=== PATIENT | female | born 1985 | race Caucasian/White ===

== ENCOUNTER 2018-02-13 06:23 | Day surgery (SDC) | payer OTHER ==
[2018-02-12 14:43] LABS: CHLORIDE,CL 104 mmol/L (98-107); SODIUM,NA 139 mmol/L (136-145)
[~2018-02-13 06:23] MED LIST: Lactated Ringers 1,000 ML IV SCH; Sodium Chloride 0.9% 10 ML Syringe FLUSH PRN; Sodium Chloride 0.9% 2.5 ML Syringe FLUSH PRN
--- NOTE | 2018-02-13 06:45 | PCM.PREANE ---
Preanesthetic Assessment - Anesthesia/Transfusion/Family Hx Anesthesia History: Prior Anesthesia Without Reaction Type of Anesthesia Reaction: Other (see below) (32 hours problem urinating after last surgery) Family History of Anesthesia Reaction: No Transfusion History: No Prior Transfusion(s) Intubation History: Unknown - Review of Systems General: No Symptoms Pulmonary: No Symptoms Cardiovascular: No Symptoms Gastrointestinal: No Symptoms Neurological: No Symptoms Other: Reports: None - Physical Assessment Height: 1.65 m Weight: 74.389 kg ASA Class: 2 Mental Status: Alert & Oriented x3 Airway Class: Mallampati = 2 Dentition: Reports: Normal Dentition (lower retainer) Thyro-Mental Finger Breadths: 3 Mouth Opening Finger Breadths: 3 ROM/Head Extension: Full Lungs: Clear to Auscultation, Normal Respiratory Effort Cardiovascular: Regular Rate, Regular Rhythm - Lab Values: Laboratory Last Values WBC 8.16 K/uL (4.0-11.0) 02/12/18 13:58 RBC 4.83 M/uL (4.30-5.90) 02/12/18 13:58 Hgb 14.7 g/dL (12.0-16.0) 02/12/18 13:58 Hct 43.3 % (36.0-46.0) 02/12/18 13:58 MCV 89.6 fL (80.0-98.0) 02/12/18 13:58 MCH 30.4 pg (27.0-32.0) 02/12/18 13:58 MCHC 33.9 g/dL (31.0-37.0) 02/12/18 13:58 RDW Std Deviation 41.3 fl (28.0-62.0) 02/12/18 13:58 RDW Coeff of Kaitlin 13 % (11.0-15.0) 02/12/18 13:58 Plt Count 261 K/uL (150-400) 02/12/18 13:58 MPV 10.80 fL (7.40-12.00) 02/12/18 13:58 Nucleated RBC % 0.0 /100WBC 02/12/18 13:58 Nucleated RBCs # 0 K/uL 02/12/18 13:58 Sodium 139 mmol/L (136-145) 02/12/18 13:58 Potassium 4.4 mmol/L (3.5-5.1) 02/12/18 13:58 Chloride 104 mmol/L (98-107) 02/12/18 13:58 Carbon Dioxide 25.9 mmol/L (21.0-32.0) 02/12/18 13:58 BUN 14 mg/dL (7.0-18.0) 02/12/18 13:58 Creatinine 0.7 mg/dL (0.6-1.0) 02/12/18 13:58 Est Cr Clr Drug Dosing 104.78 mL/min 02/12/18 13:58 Estimated GFR (MDRD) > 60.0 ml/min 02/12/18 13:58 Glucose 89 mg/dL (74-106) 02/12/18 13:58 Calcium 9.0 mg/dL (8.5-10.1) 02/12/18 13:58 HCG, Qual NEGATIVE (NEG) 02/12/18 13:58 Blood Type A POSITIVE 02/12/18 13:58 Antibody Screen NEGATIVE 02/12/18 13:58 - Allergies Allergies/Adverse Reactions: Allergies Allergy/AdvReac Type Severity Reaction Status Date / Time morphine Allergy Anaphylactic Verified 02/11/18 10:27 Shock - Blood Blood Available: No - Anesthesia Plan Pre-Op Medication Ordered: None - Acknowledgements Anesthesia Type Planned: General Anesthesia Pt an Appropriate Candidate for the Planned Anesthesia: Yes Alternatives and Risks of Anesthesia Discussed w Pt/Guardian: Yes Pt/Guardian Understands and Agrees with Anesthesia Plan: Yes PreAnesthesia Questionnaire HEENT History: Reports: None Other HEENT History: wears glasses, has permanent lower dental retainer Cardiovascular History: Reports: None Respiratory History: Reports: None Gastrointestinal History: Reports: Celiac Disease, Hiatal Hernia Genitourinary History: Reports: Renal Calculus TOOL SPECIALIST History: Reports: Polycystic Ovaries, Other (See Below) Other OB/BYN History: laproscopic cyst removal Musculoskeletal History: Reports: Back Pain, Chronic Other Musculoskeletal History: Knee surgery torn meniscus 2013 Neurological History: Reports: Concussion, Migraines Other Neuro History: chronic migranes, hx of motion sickness Psychiatric History: Reports: Anxiety, Depression Endocrine/Metabolic History: Reports: None Hematologic History: Reports: None Immunologic History: Reports: None Oncologic (Cancer) History: Reports: None Dermatologic History: Reports: Eczema - Past Surgical History Head Surgeries/Procedures: Reports: None HEENT Surgical History: Reports: Oral Surgery Cardiovascular Surgical History: Reports: None Respiratory Surgical History: Reports: None GI Surgical History: Reports: None Female Surgical History: Reports: Lithotripsy/ESWL (urinary stent placement and removal), Other (See Below) Other Female Surgeries/Procedures: Laparoscopy x2, last one 12/04 Endocrine Surgical History: Reports: None Neurological Surgical History: Reports: None Musculoskeletal Surgical History: Reports: Arthroscopic Knee Other Musculoskeletal Surgeries/Procedures:: left for torn meniscus Oncologic Surgical History: Reports: None Dermatological Surgical History: Reports: None - SUBSTANCE USE Smoking Status *Q: Never Smoker Tobacco Use Within Last Twelve Months: No Second Hand Smoke Exposure: No Days Per Week of Alcohol Use: 4 Number of Drinks Per Day: 1 Total Drinks Per Week: 4 Recreational Drug Use History: No - HOME MEDS Home Medications: Home Meds Topiramate [Topamax] 200 mg PO DAILY 11/17/16 [History] buPROPion HCl [Wellbutrin Xl] 450 mg PO DAILY 11/17/16 [History] Multivitamin [Daily Multiple Vitamin] 1 tab PO DAILY 11/28/16 [History] ClonazePAM [KlonoPIN] 0.5 mg PO ASDIRECTED PRN 02/11/18 [History] busPIRone HCl [Buspirone HCl] 7.5 mg PO BID 02/11/18 [History] hydrOXYzine HCl [hydrOXYzine] 10 mg PO ASDIRECTED PRN 02/11/18 [History] - CURRENT (IN HOUSE) MEDS Current Meds: Current Medications Lactated Ringer's (Ringers, Lactated) 1,000 mls @ 125 mls/hr IV ASDIRECTED KRISHNA Sodium Chloride (Saline Flush) 10 ml FLUSH ASDIRECTED PRN PRN Reason: Keep Vein Open Sodium Chloride (Saline Flush) 2.5 ml FLUSH ASDIRECTED PRN PRN Reason: Keep Vein Open
[2018-02-13] MEDS ORDERED: Scopolamine 1.5 MG Transdermal Patch TRDERM PRN (06:46)
[2018-02-13] MEDS ORDERED: fentaNYL 250 MCG/5 ML SDV ONE (07:25)
[2018-02-13] MEDS ORDERED: Propofol 200 MG/20 ML SDV ONE (07:25)
[2018-02-13] MEDS ORDERED: Lidocaine 2% 5 ML SDV ONE (07:25)
[2018-02-13] MEDS ORDERED: Midazolam 1 MG/ML 2 ML SDV ONE (07:25)
[2018-02-13] MEDS ORDERED: Rocuronium 10 MG/ML 10 ML Syringe ONE (07:26)
[2018-02-13] MEDS ORDERED: Glycopyrrolate 0.2 MG/ML SDV ONE (07:26)
[2018-02-13] MEDS ORDERED: Neostigmine Methylsulfate 1 MG/ML 5 ML Syringe ONE (07:26)
[2018-02-13] MEDS ORDERED: Ondansetron 4 MG/2 ML SDV ONE (07:26)
[2018-02-13] MEDS ORDERED: Ketorolac 30 MG/ML SDV ONE (07:26)
[2018-02-13] MEDS ORDERED: ePHEDrine 50 MG/ML SDV ONE (08:08)
[2018-02-13] MEDS ORDERED: Octyl 2-Cyanoacrylate 1 Tube ONE (08:25)
[2018-02-13] MEDS ORDERED: Ketorolac 30 MG/ML SDV IVPUSH ONE (08:56)
[2018-02-13] MEDS ORDERED: Ketorolac 30 MG/ML SDV IVPUSH PRN (08:56)
[2018-02-13] MEDS ORDERED: Ondansetron 4 MG/2 ML SDV IVPUSH PRN (08:56)
[2018-02-13] MEDS ORDERED: Morphine 4 MG/ML Syringe IVPUSH PRN (08:56)
[2018-02-13] MEDS ORDERED: Acetaminophen/oxyCODONE 325-5 MG Tab PO PRN ×2 (08:56)
[2018-02-13] MEDS ORDERED: Promethazine 25 MG/ML SDV IM PRN (08:56)
--- NOTE | 2018-02-13 09:01 | PCM.OPNOTE ---
- General Post-Op/Procedure Note Date of Surgery/Procedure: 02/13/18 Operative Procedure(s): Dignostic Laparscopy Pre Op Diagnosis: Ovarian cyst Post-Op Diagnosis: Same Anesthesia Technique: General ET Tube Primary Surgeon: Florin Caldwell Plasterer Maintenance: Faviola Watts EBL in mLs: 50 Complications: None Condition: Good
[2018-02-13] MEDS: fentaNYL 100 MCG/2 ML SDV IVPUSH PRN ×3 (09:25→09:49)
--- NOTE | 2018-02-13 09:57 | PCM.POSTAN ---
POST ANESTHESIA ASSESSMENT - MENTAL STATUS Mental Status: Alert, Oriented - RESPIRATORY Respiratory Status: Respiratory Rate WNL, Airway Patent, O2 Saturation Stable - CARDIOVASCULAR CV Status: Pulse Rate WNL, Blood Pressure Stable - GASTROINTESTINAL GI Status: No Symptoms - PAIN Pain Score: 6 - POST OP HYDRATION Hydration Status: Adequate & Stable - OBSERVATIONS Free Text/Narrative:: no anesthesia problems
--- NOTE | 2018-02-13 11:26 | PCM48HPAN ---
Post Anesthesia Note - EVALUATION WITHIN 48HRS OF ANESTHETIC Vital Signs in Normal Range: Yes Patient Participated in Evaluation: Yes Respiratory Function Stable: Yes Airway Patent: Yes Cardiovascular Function Stable: Yes Hydration Status Stable: Yes Pain Control Satisfactory: Yes Nausea and Vomiting Control Satisfactory: Yes Mental Status Recovered: Yes Resp Rate: 12 - COMMENTS/OBSERVATIONS Free Text/Narrative:: no anesthesia problems
[2018-02-13 11:46] VITALS: BP 126/70
--- NOTE | 2018-02-13 11:48 | OR ---
SURGEON: Florin Caldwell MD DATE OF PROCEDURE: 02/13/2018 PREOPERATIVE DIAGNOSES: 1. Pelvic pain. 2. Right ovarian cyst. POSTOPERATIVE DIAGNOSES: 1. Pelvic pain. 2. Right ovarian cyst. 3. Pelvic adhesion. 4. Endometriosis, stage I by the [employer] staging. OPERATIONS PERFORMED: Multiple puncture diagnostic laparoscopy, lysis of adhesion, right ovarian cystectomy, and peritoneal lavage. CHIEF UNDERWRITER: KAREN Bonilla ANESTHESIA: General endotracheal intubation, Joe Turner. ESTIMATED BLOOD LOSS: 50 mL or less. COMPLICATIONS: None. FINDINGS: Adhesion between the intestine and the right ovary from her previous surgery that was lysed without any problem. Right ovarian cyst about 5 cm in diameter that was marsupialized and drained and opened. Endometriosis of the pelvis, especially the right pelvic sidewall, that was documented by photography. PROCEDURE IN DETAIL: The patient was brought to the OR, properly identified, and after adequate level of anesthesia, a straight catheter was used to empty the bladder, and then a Smart [place] manipulator was placed in the uterus for manipulation. The operation shifted abdominally. A stab wound done beneath the umbilicus. The Veress needle was placed in the peritoneal cavity and that cavity insufflated with 3 L of carbon dioxide. Then, utilizing the Visiport technique, the peritoneal cavity was entered. During the procedure, we needed to insert 3 additional 5 mm trocars in the right, left, and suprapubic area. Once we entered, there was adhesion between the intestine and the tip of the right ovary, and then with pulling the adhesion at the area of tension, with meticulous sharp and blunt dissection, the adhesion was lysed without any damage to the intestine. Once we did that, I proceeded to inspect the rest of the pelvis. The patient had a 5 cm right ovarian cyst, and she had endometriosis on the pelvis that was documented by photography. After lysing of the adhesion, I proceeded to drain and open the right ovarian cyst. Once this was done, then thorough irrigation of the pelvis was done. Inspection of the whole operative site shows no oozing, no bleeding. The procedure was ended, and instrument hardware was retrieved from the abdomen and the vagina. Multiple laparoscopic incisions closed in layers. EARNESTINE / JACOBO /[id number]
== END 2018-02-13 11:50 | disposition home or self-care (01) ==
LOC: MW.SDS 06:23
PROVIDERS: ATTEND Obstetrics & Gynecology
DX: N80.3 Endometriosis of pelvic peritoneum (principal); R10.2 Pelvic and perineal pain; N83.201 Unspecified ovarian cyst, right side; N73.6 Female pelvic peritoneal adhesions (postinfective); F41.9 Anxiety disorder, unspecified; F32.9 Major depressive disorder, single episode, unspecified; Z88.2 Allergy status to sulfonamides; Z79.899 Other long term (current) drug therapy
CPT/HCPCS: 36415; 58662; 80048; 84703; 85027; 86850; 86900; 86901; A9270; J1885; J2250; J2405; J3010; J7120; 00840; J2704

== ENCOUNTER 2021-03-09 11:54 | Emergency (ER) | payer OTHER ==
--- NOTE | 2021-03-09 11:59 | EDM.PDOC ---
ED HPI GENERAL MEDICAL PROBLEM - General Stated Complaint: LOWER RIGHT SIDE PAIN Time Seen by Provider: 03/09/21 11:55 Source of Information: Reports: Patient History Limitations: Reports: No Limitations - History of Present Illness INITIAL COMMENTS - FREE TEXT/NARRATIVE: HISTORY AND PHYSICAL: History of present illness: The patient is a 35-year-old female with a history of right ovarian cyst rupture in November 17, 2016 which required surgery and admission, and 3 previous right ovarian cyst surgeries, presents to the emergency room with complaints of right lower quad pain that started at 11 AM this morning. The patient states she took 1 ibuprofen 200 mg for pain. She states the pain is worse with standing blood pressure. The pain is better with sitting or leaning forward. She does have na usea, but no vomiting. She states her pain is a 4 out of 10. She has had diarrhea intermittently since her November COV episode. She denies any vaginal discharge, dysuria, frequency or other urinary symptoms. Patient denies any fever, chills, headache, change in vision, syncope or near syncope. Denies any chest pain, back pain, shortness of breath or cough. Has not noted any blood in urine or stool. Review of systems: As per history of present illness and below otherwise all systems reviewed and negative. Past medical history: As per history of present illness and as reviewed below otherwise noncontributory. Surgical history: As per history of present illness and as reviewed below otherwise noncontributory. Social history: See social history for further information Family history: As per history of present illness and as reviewed below otherwise noncontributory. Physical exam: General: Well developed and well nourished. Alert and orientated x 3. Nontoxic in appearance and in no acute distress. Vital signs are stable and have been reviewed by me. Nursing notes were reviewed. HEENT: Atraumatic, normocephalic, pupils equal and reactive bilaterally, negative for conjunctival pallor or scleral icterus, mucous membranes moist, neck supple, nontender, trachea midline. No drooling or trismus noted. No meningeal signs. No hot potato voice noted. Lungs: Clear to auscultation bilaterally. No wheezes, rales, or rhonchi. Chest nontender. Normal work of breathing, no accessory muscles used. Heart: S1S2, regular rate and rhythm without overt murmur, gallops, or rubs. No JVD. No peripheral edema Abdomen: Soft, nondistended, RLQ tender. Normoactive bowel sounds. Negative for masses or costovertebral tenderness. Skin: Intact, warm, dry. No lesions or rashes noted. Hematologic: No petechiae or purpra. Mucosa appropriate color and normal nail bed color and refill. Extremities: Atraumatic, moves all extremities per self without difficulty or deficits, negative for cords or calf pain. Neurovascular unremarkable. Neuro: Awake, alert, oriented. Cranial nerves II through XII unremarkable. Cerebellum unremarkable. Motor and sensory unremarkable throughout. Exam non focal. Psychiatric: Mood and affect are appropriate. Normal thought process. Answering questions appropriately. Notes: *This patient was seen and evaluated during the 2019 SARS-CoV-2 novel coronavir us pandemic period. Community viral transmission is ongoing at time of this encounter and the emergency department is operating under pandemic response procedures. After discussion and examination the patient is agreeable to lab work, ultrasound, and medications. 13:44 CBC and CMP within normal limits. hCG and UA negative. Awaiting transvaginal ultrasound results. (13:54) The patient pain level is increasing and she is requesting more pain medication. I will order Dilaudid 1mg IV for her. (12:20) Pelvis US impression: No definitive findings to explain the patient`s right lower quadrant pain. Nabothian cysts. Small amount of free fluid per the radiologist.CT abdomen/pelvis ordered. (14:33) Patient complained of increased nausea. Phenergan 12.[address] results. (15:18) CT results Small bowel feces sign in several loops of small bowel suggesting bowel stasis. No evidence for bowel obstruction. Nonobstructive 2 mm right renal stone. Normal appendix. The patient was educated on the need to use a laxative. She will try an OTC method at home. Her pain is under control, rating 4/10 and no nausea at this time. This could be causing the patient's pain and I will discharge her home. I have talked with the patient about today's findings, in addition to providing specific details for plan of care. Reassessment at the time of disposition demonstrates that the patient is in no acute distress. The patient is stable for discharge, counseling was provided and we discussed in great detail signs and symptoms that would prompt them to return to the Emergency Department. Medication, follow up and supportive care measures were reviewed and discussed. Voices understanding and is agreeable to plan of care. Denies any further questions or concerns at this time. Diagnostics: CBC, CMP, hCG, UA, transvaginal ultrasound Therapeutics: Zofran, Toradol, Dilaudid Impression: Right lower abdominal pain Plan: 1. You were evaluated today on an emergent basis. Your right lower abdominal pain with blood work, a urinalysis, pelvic ultrasound and abdominal CAT scan. Your blood work was normal and you do not have a urinary tract infection. Your pelvic ultrasound read: No definitive findings to explain the patient`s right lower quadrant pain and your CT showed constipation. You can use an [id number] laxative for your constipation. An NSAID such as Motrin 600 mg every 6-8 hours for your pain. Your next dose is due around 6:30 pm. If you are unable to get pain relief return to the ED. Follow up with your primary care provider for your right lower abdominal pain. 2. You can alternate Tylenol and ibuprofen as needed for pain and fever management. 3. We encourage you to follow up with your primary care provider and/or recommended specialist in the next few days for re-evaluation and further care/management. 4. If your symptoms should worsen, new symptoms develop or any of the signs and symptoms we discussed should arise please return to the emergency room or call 911 (if needed). Definitive disposition and diagnosis as appropriate pending reevaluation and review of above. right side Pain Score (Numeric/FACES): 4 - Related Data Allergies Allergy/AdvReac Type Severity Reaction Status Date / Time morphine Allergy Anaphylactic Verified 03/09/21 12:05 Shock Home Meds: Home Meds Topiramate [Topamax] 200 mg PO DAILY 11/17/16 [History] buPROPion HCL [Wellbutrin Xl] 450 mg PO DAILY 11/17/16 [History] Multivitamin [Daily Multiple Vitamin] 1 tab PO DAILY 11/28/16 [History] ClonazePAM [KlonoPIN] 0.5 mg PO ASDIRECTED PRN 02/11/18 [History] busPIRone HCl [Buspirone HCl] 7.5 mg PO BID 02/11/18 [History] hydrOXYzine HCL [hydrOXYzine] 10 mg PO ASDIRECTED PRN 02/11/18 [History] Past Medical History HEENT History: Reports: None Other HEENT History: wears glasses, has permanent lower dental retainer Cardiovascular History: Reports: None Respiratory History: Reports: None Gastrointestinal History: Reports: Celiac Disease, Hiatal Hernia Genitourinary History: Reports: Renal Calculus P[employer]DER History: Reports: Polycystic Ovaries, Other (See Below) Other [employer]DER History: laproscopic cyst removal Musculoskeletal History: Reports: Back Pain, Chronic Other Musculoskeletal History: Knee surgery torn meniscus 2013 Neurological History: Reports: Concussion, Migraines Other Neuro History: chronic migranes, hx of motion sickness Psychiatric History: Reports: Anxiety, Depression Endocrine/Metabolic History: Reports: None Hematologic History: Reports: None Immunologic History: Reports: None Oncologic (Cancer) History: Reports: None Dermatologic History: Reports: Eczema - Past Surgical History Head Surgeries/Procedures: Reports: None HEENT Surgical History: Reports: Oral Surgery Cardiovascular Surgical History: Reports: None Respiratory Surgical History: Reports: None GI Surgical History: Reports: None Female Surgical History: Reports: Lithotripsy/ESWL, Other (See Below) Other Female Surgeries/Procedures: Laparoscopy x2, last one 12/04 Endocrine Surgical History: Reports: None Neurological Surgical History: Reports: None Musculoskeletal Surgical History: Reports: Arthroscopic Knee Other Musculoskeletal Surgeries/Procedures:: left for torn meniscus Oncologic Surgical History: Reports: None Dermatological Surgical History: Reports: None Social & Family History - Family History Family Medical History: No Pertinent Family History HEENT: Reports: None Cardiac: Reports: Hypertension, Other (See Below) Other Cardiac Family History: grandfather bypass. mother surgery for heart mumor Respiratory: Reports: COPD GI: Reports: None : Reports: None OBGYN: Reports: None Musculoskeletal: Reports: None Neurological: Reports: Alzheimers Disease Psychiatric: Reports: Depression Endocrine/Metabolic: Reports: Diabetes, type II Hematologic: Reports: None Immunologic: Reports: None Oncologic: Reports: Breast - Caffeine Use Caffeine Use: Reports: Coffee ED ROS GENERAL - Review of Systems Review Of Systems: Comprehensive ROS is negative, except as noted in HPI. ED EXAM, GENERAL - Physical Exam Exam: See Below (See dictation) Course - Vital Signs Last Recorded V/S: Last Vital Signs Temp 98.7 F 03/09/21 15:52 Pulse 88 03/09/21 15:52 Resp 16 03/09/21 15:52 BP 101/59 L 03/09/21 15:52 Pulse Ox 98 03/09/21 15:52 - Orders/Labs/Meds Labs: Laboratory Tests 03/09/21 03/09/21 03/09/21 Range/Units 12:30 12:30 12:30 WBC 9.66 (4.0-11.0) K/uL RBC 4.60 (4.30-5.90) M/uL Hgb 14.4 (12.0-16.0) g/dL Hct 43.8 (36.0-46.0) % MCV 95.2 (80.0-98.0) fL MCH 31.3 (27.0-32.0) pg MCHC 32.9 (31.0-37.0) g/dL RDW Std Deviation 46.0 (28.0-62.0) fl RDW Coeff of Kaitlin 13 (11.0-15.0) % Plt Count 230 (150-400) K/uL MPV 11.90 (7.40-12.00) fL Neut % (Auto) 62.4 (48.0-80.0) % Lymph % (Auto) 23.5 (16.0-40.0) % Grayson % (Auto) 12.0 (0.0-15.0) % Eos % (Auto) 1.7 (0.0-7.0) % Baso % (Auto) 0.4 (0.0-1.5) % Neut # (Auto) 6.0 H (1.4-5.7) K/uL Lymph # (Auto) 2.3 (0.6-2.4) K/uL Grayson # (Auto) 1.2 H (0.0-0.8) K/uL Eos # (Auto) 0.2 (0.0-0.7) K/uL Baso # (Auto) 0.0 (0.0-0.1) K/uL Nucleated RBC % 0.0 /100WBC Nucleated RBCs # 0 K/uL Sodium 140 (136-145) mmol/L Potassium 3.8 (3.5-5.1) mmol/L Chloride 105 (98-107) mmol/L Carbon Dioxide 23.7 (21.0-32.0) mmol/L BUN 15 (7.0-18.0) mg/dL Creatinine 0.9 (0.6-1.0) mg/dL Est Cr Clr Drug Dosing 79.25 mL/min Estimated GFR (MDRD) > 60.0 ml/min Glucose 105 (74-106) mg/dL Calcium 9.0 (8.5-10.1) mg/dL Total Bilirubin 0.4 (0.2-1.0) mg/dL AST 18 (15-37) IU/L ALT 31 (14-63) IU/L Alkaline Phosphatase 81 (46-116) U/L Total Protein 7.7 (6.4-8.2) g/dL Albumin 4.0 (3.4-5.0) g/dL Globulin 3.7 (2.6-4.0) g/dL Albumin/Globulin Ratio 1.1 (0.9-1.6) HCG, Qual NEGATIVE (NEG) Urine Color Urine Appearance Urine pH (5.0-8.0) Ur Specific [place] (1.001-1.035) Urine Protein (NEGATIVE) mg/dL Urine Glucose (UA) (NEGATIVE) mg/dL Urine Ketones (NEGATIVE) mg/dL Urine Occult Blood (NEGATIVE) Urine Nitrite (NEGATIVE) Urine Bilirubin (NEGATIVE) Urine Urobilinogen (<2.0) EU/dL Ur Leukocyte Esterase (NEGATIVE) 03/09/21 Range/Units 12:35 WBC (4.0-11.0) K/uL RBC (4.30-5.90) M/uL Hgb (12.0-16.0) g/dL Hct (36.0-46.0) % MCV (80.0-98.0) fL MCH (27.0-32.0) pg MCHC (31.0-37.0) g/dL RDW Std Deviation (28.0-62.0) fl RDW Coeff of Kaitlin (11.0-15.0) % Plt Count (150-400) K/uL MPV (7.40-12.00) fL Neut % (Auto) (48.0-80.0) % Lymph % (Auto) (16.0-40.0) % Grayson % (Auto) (0.0-15.0) % Eos % (Auto) (0.0-7.0) % Baso % (Auto) (0.0-1.5) % Neut # (Auto) (1.4-5.7) K/uL Lymph # (Auto) (0.6-2.4) K/uL Grayson # (Auto) (0.0-0.8) K/uL Eos # (Auto) (0.0-0.7) K/uL Baso # (Auto) (0.0-0.1) K/uL Nucleated RBC % /100WBC Nucleated RBCs # K/uL Sodium (136-145) mmol/L Potassium (3.5-5.1) mmol/L Chloride (98-107) mmol/L Carbon Dioxide (21.0-32.0) mmol/L BUN (7.0-18.0) mg/dL Creatinine (0.6-1.0) mg/dL Est Cr Clr Drug Dosing mL/min Estimated GFR (MDRD) ml/min Glucose (74-106) mg/dL Calcium (8.5-10.1) mg/dL Total Bilirubin (0.2-1.0) mg/dL AST (15-37) IU/L ALT (14-63) IU/L Alkaline Phosphatase (46-116) U/L Total Protein (6.4-8.2) g/dL Albumin (3.4-5.0) g/dL Globulin (2.6-4.0) g/dL Albumin/Globulin Ratio (0.9-1.6) HCG, Qual (NEG) Urine Color YELLOW Urine Appearance CLEAR Urine pH 6.0 (5.0-8.0) Ur Specific [place] 1.010 (1.001-1.035) Urine Protein NEGATIVE (NEGATIVE) mg/dL Urine Glucose (UA) NEGATIVE (NEGATIVE) mg/dL Urine Ketones NEGATIVE (NEGATIVE) mg/dL Urine Occult Blood NEGATIVE (NEGATIVE) Urine Nitrite NEGATIVE (NEGATIVE) Urine Bilirubin NEGATIVE (NEGATIVE) Urine Urobilinogen 0.2 (<2.0) EU/dL Ur Leukocyte Esterase NEGATIVE (NEGATIVE) Meds: Medications Discontinued Medications Generic Name Dose Route Start Last Admin Trade Name Freq PRN Reason Stop Dose Admin Hydromorphone HCl 1 mg 03/09/21 13:56 03/09/21 14:04 Hydromorphone 1 Mg/Ml Syringe IVPUSH 03/09/21 13:57 1 mg ONETIME ONE Administration Ketorolac Tromethamine 30 mg 03/09/21 12:14 03/09/21 12:27 Ketorolac 30 Mg/Ml Sdv IVPUSH 03/09/21 12:15 30 mg ONETIME ONE Administration Ondansetron HCl 4 mg 03/09/21 12:14 03/09/21 12:28 Ondansetron 4 Mg/2 Ml Sdv IVPUSH 03/09/21 12:15 4 mg ONETIME ONE Administration Promethazine HCl 12.5 mg 03/09/21 14:35 03/09/21 14:42 Promethazine 25 Mg/Ml Sdv IM 03/09/21 14:36 12.5 mg ONETIME ONE Administration Sodium Chloride 10 ml 03/09/21 12:14 03/09/21 12:27 Sodium Chloride 0.9% 10 Ml Syringe FLUSH 10 ml ASDIRECTED PRN Administration Keep Vein Open Sodium Chloride 2.5 ml 03/09/21 12:14 03/09/21 12:27 Sodium Chloride 0.9% 2.5 Ml Syringe FLUSH 2.5 ml ASDIRECTED PRN Administration Keep Vein Open Departure - Departure Time of Disposition: 15:23 Disposition: Home, Self-Care 01 Condition: Good Clinical Impression: Right lower quadrant abdominal pain - Discharge Information *PRESCRIPTION DRUG MONITORING PROGRAM REVIEWED*: Not Applicable *COPY OF PRESCRIPTION DRUG MONITORING REPORT IN PATIENT AMY: Not Applicable Instructions: Pelvic Pain, Female Referrals: Alanis Jett DO [Primary Care Provider] - Forms: ED Department Discharge Additional Instructions: The following information is given to patients seen in the emergency department who are being discharged to home. This information is to outline your options for follow-up care. We provide all patients seen in our emergency department with a follow-up referral. The need for follow-up, as well as the timing and circumstances, are variable depending upon the specifics of your emergency department visit. If you don't have a primary care physician on staff, we will provide you with a referral. We always advise you to contact your personal physician following an emergency department visit to inform them of the circumstance of the visit and for follow-up with them and/or the need for any referrals to a consulting specialist. The emergency department will also refer you to a specialist when appropriate. This referral assures that you have the opportunity for follow-up care with a specialist. All of these measure are taken in an effort to provide you with optimal care, which includes your follow-up. Under all circumstances we always encourage you to contact your private physician who remains a resource for coordinating your care. When calling for follow-up care, please make the office aware that this follow-up is from your recent emergency room visit. If for any reason you are refused follow-up, please contact the [facility] Emergency Department at and asked to speak to the emergency department charge nurse. [facility] [address] [place] [id number] [address] Plan: 1. You were evaluated today on an emergent basis. Your right lower abdominal pain with blood work, a urinalysis, pelvic ultrasound and abdominal CAT scan. Your blood work was normal and you do not have a urinary tract infection. Your pelvic ultrasound read: No definitive findings to explain the patient`s right lower quadrant pain and your CT showed constipation. You can use an [id number] laxative for your constipation. An NSAID such as Motrin 600 mg every 6-8 hours for your pain. Your next dose is due around 6:30 pm. If you are unable to get pain relief return to the ED. Follow up with your primary care provider for your right lower abdominal pain. 2. You can alternate Tylenol and ibuprofen as needed for pain and fever management. 3. We encourage you to follow up with your primary care provider and/or recommended specialist in the next few days for re-evaluation and further care/management. 4. If your symptoms should worsen, new symptoms develop or any of the signs and symptoms we discussed should arise please return to the emergency room or call [phone] (if needed).
[2021-03-09] MEDS ORDERED: Sodium Chloride 0.9% 2.5 ML Syringe FLUSH PRN (12:14)
[2021-03-09] MEDS ORDERED: Ketorolac 30 MG/ML SDV IVPUSH ONE (12:14)
[2021-03-09] MEDS ORDERED: Ondansetron 4 MG/2 ML SDV IVPUSH ONE (12:14)
[2021-03-09] MEDS ORDERED: Sodium Chloride 0.9% 10 ML Syringe FLUSH PRN (12:14)
[2021-03-09 13:07] LABS: BLOOD UREA NITROGEN,BUN 15 mg/dL (7.0-18.0); CARBON DIOXIDE,CO2 23.7 mmol/L (21.0-32.0); CHLORIDE,CL 105 mmol/L (98-107); GLUCOSE RANDOM 105 mg/dL (74-106); POTASSIUM,K 3.8 mmol/L (3.5-5.1); SODIUM,NA 140 mmol/L (136-145)
[2021-03-09] MEDS ORDERED: HYDROmorphone 1 MG/ML Syringe IVPUSH ONE (13:56)
--- NOTE | 2021-03-09 14:13 | US ---
INDICATION: Right lower quadrant pain TECHNIQUE: Ultrasound pelvis transvaginal limited COMPARISON: 08/28/2018 FINDINGS: Uterus: 7.4 centimeter x 4.7 centimeter x 4.0 centimeter. Normal echotexture of the myometrium. No masses. Nabothian cysts. Endometrium: The endometrium measures 9 mm in thickness. No sign of endometrial mass or fluid. Right ovary: 2.7 centimeter x 1.7 centimeter x 2.8 centimeter. No ovarian or adnexal masses. Normal arterial and venous blood flow. Left ovary: 4.5 centimeter x 2.9 centimeter x 2.3 centimeter. No ovarian or adnexal masses. 1.7 centimeter dominant follicle. Normal arterial and venous blood flow. Cul-de-sac: Small amount of free fluid. IMPRESSION: No definitive findings to explain the patient`s right lower quadrant pain. Nabothian cysts. Small amount of free fluid. Dictated by Jose Elias Carter MD @ 03/09/2021 2:11:[address] Jose Elias Carter @ Mar 09 2021 2:11PM
[2021-03-09] MEDS ORDERED: Promethazine 25 MG/ML SDV IM ONE (14:35)
--- NOTE | 2021-03-09 15:10 | CT ---
INDICATION: Right lower quadrant pain since 11 a.m. today TECHNIQUE: CT abdomen and pelvis without contrast. COMPARISON: CT November 17, 2020, pelvic ultrasound March 09, 2021 FINDINGS: Lower chest: Unremarkable. Liver: Unremarkable. Spleen: Unremarkable. Pancreas: Unremarkable. Gallbladder and bile ducts: Unremarkable. Adrenal glands: Unremarkable. Kidneys: 2 mm nonobstructive right renal stone. No hydronephrosis, ureteral stone, or bladder stone. GI tract: Small bowel feces sign in several loops of small bowel. Appendix is normal. Vascular structures: Unremarkable. Lymph nodes: Unremarkable. Miscellaneous: Unremarkable. No free air or significant free fluid. Pelvic Organs: Unremarkable. Bones: Internal fixation hardware at L5-S1. IMPRESSION: Small bowel feces sign in several loops of small bowel suggesting bowel stasis. No evidence for bowel obstruction. Nonobstructive 2 mm right renal stone. Normal appendix. Please note that all CT scans at this facility use dose modulation, iterative reconstruction, and/or weight-based dosing when appropriate to reduce radiation dose to as low as reasonably achievable. Dictated by Shannon Lynn MD @ 03/09/2021 3:08:[address] Shannon Lynn @ Mar 09 2021 3:08PM
[2021-03-09 15:54] VITALS: BP 101/59; PULSE 88
== END 2021-03-09 15:54 | disposition home or self-care (01) ==
LOC: MW.ED 11:54
DX: R10.31 Right lower quadrant pain (principal); Z88.5 Allergy status to narcotic agent; Z79.899 Other long term (current) drug therapy
CPT/HCPCS: 36415; 74176; 76830; 80053; 81003; 84703; 85025; 96372; 96374; 96375; 99284; J1170; J1885; J2405; J2550